=== PATIENT | female | born 1955 | race Caucasian/White ===

== ENCOUNTER 2018-06-11 14:28 | Emergency (ER) | payer MEDICAID, MEDICARE ==
[~2018-06-11] VITALS: Ht 162.6 cm; Wt 88.0 kg
[~2018-06-11 14:28] MED LIST: ALPR0.5T PO; ASPI-1155 PO; CALC0.258 PO; FURO40SO5 PO; HYDR-4100 PO; IBAN150T8 PO; LEVO100T9 PO; LOSA25TA3 PO; MONT10TA22 PO; OMEP20CA10 PO; POTA-88 PO
[2018-06-11 14:34] VITALS: BP_SYST 125
[2018-06-11] MEDS ORDERED: KETOROLAC TROMETHAMINE 60 MG/2 ML VIAL IM ONE (15:00)
[2018-06-11 16:18] VITALS: BP_SYST 125
== END 2018-06-11 16:18 | disposition home or self-care (01) ==
LOC: SED 14:28
DX: G89.29 Other chronic pain (principal); I10 Essential (primary) hypertension; E03.9 Hypothyroidism, unspecified; M79.7 Fibromyalgia; Z90.710 Acquired absence of both cervix and uterus; Z87.891 Personal history of nicotine dependence; Z87.442 Personal history of urinary calculi
CPT/HCPCS: 96372; 99283; J1885

== ENCOUNTER 2018-06-25 18:06 | Emergency (ER) | payer MEDICAID ==
[~2018-06-25] VITALS: Ht 162.6 cm; Wt 86.2 kg
[2018-06-25 18:10] VITALS: BP_SYST 151
--- NOTE | 2018-06-25 18:20 | NUR ---
Patient triaged and placed in waiting room. VSS and patient appears in no acute distress at this time. Accompanied by self, awaiting available bed, and MD notified of need for MSE.
--- NOTE | 2018-06-25 19:35 | NUR ---
Placed in room 03 . Placed on fuel technician, blood pressure machine and pulse oximeter. To gown for exam. Side rails up. Report given to RN.
--- NOTE | 2018-06-25 19:35 | NUR ---
Patient called for placement unable to be found for placement.
[2018-06-25] MEDS ORDERED: ALBUTEROL SULFATE 0.083% 2.5 MG/3 ML VIAL.NEB IH ONE (21:00)
[2018-06-25] MEDS ORDERED: IPRATROPIUM BROM 0.5 MG/2.5 ML VIAL.NEB (ATROVENT) IH ONE (21:00)
[2018-06-25] MEDS ORDERED: methylPREDNISolone SOD SUCC/PF 62.5 MG/ML VIAL IVP ONE (21:00)
--- NOTE | 2018-06-25 21:00 | NUR ---
Patient back in waiting room. VSS. No bed available at this time. Will continue to monitor.
--- NOTE | 2018-06-25 21:15 | NUR ---
Patient not found in waiting room for chest x-ray.
--- NOTE | 2018-06-25 21:30 | NUR ---
Patient not in waiting room, not in x-ray, not in bathroom, not outside of ER/Hospital, unable to locate patient.
--- NOTE | 2018-06-25 22:30 | NUR ---
Patient not in waiting room, not in bathroom, not in radiology, not outside of ER/Hospital, unable to locate patient. Charge nurse aware.
--- NOTE | 2018-06-25 23:00 | NUR ---
Patient not in waiting room, not in bathroom, not in radiology, not outside of ER/Hospital, unable to locate patient. Charge nurse aware.
--- NOTE | 2018-06-25 23:05 | NUR ---
Patient left without being seen. Patient was not seen by ER MD.
== END 2018-06-25 23:05 | disposition left against medical advice (07) ==
LOC: SED 18:06
DX: R05 Cough (principal); R06.02 Shortness of breath; R50.9 Fever, unspecified; Z53.21 Procedure and treatment not carried out due to patient leaving prior to being seen by health care provider
CPT/HCPCS: 99281; J7613

== ENCOUNTER 2018-07-09 09:55 | Emergency (ER) | payer MEDICAID ==
[~2018-07-09] VITALS: Ht 162.6 cm; Wt 87.1 kg
[2018-07-09 10:15] VITALS: BP_SYST 99
[2018-07-09] MEDS: NACL 0.9% 1,000 ML IV ONE (11:15)
[2018-07-09 11:27] LABS: BLOOD, URINE NEGATIVE (NEGATIVE); CLARITY/URINE SL HAZY (CLEAR); COLOR,URINE YELLOW (YELLOW); GLUCOSE,URINE NEGATIVE (NEGATIVE); KETONES,URINE 1+ (NEGATIVE); LEUKOCYTE ESTERASE ,URINE 1+ (NEGATIVE); NITRITE, URINE NEGATIVE (NEGATIVE); PROTEIN URINE TRACE (NEGATIVE); UROBILINOGEN,URINE 0.2 (0.2-1.0)
[2018-07-09 11:35] LABS: BASOPHILS # (AUTO) 0.1 K/uL (0.0-0.2); BASOPHILS % (AUTO) 0.6 % (0.0-2.0); EOSINOPHILS # (AUTO) 0.1 K/uL (0.0-0.4); HEMATOCRIT 39.6 % (36-48); HEMOGLOBIN 12.9 g/dL (12.0-16.0); LYMPHOCYTES # (AUTO) 4.7 K/uL (1.0-5.5); MEAN CORPUSCULAR HEMOGLOBIN 28 pg (27-31); MEAN CORPUSCULAR HGB CONC 33 % (32-36); MEAN CORPUSCULAR VOLUME 87 fL (79.0-98.0); MONOCYTES # (AUTO) 0.6 K/uL (0.0-1.0); MONOCYTES % (AUTO) 6.7 % (1.7-9.3); NEUTROPHILS # (AUTO) 3.4 K/uL (1.8-7.7); NEUTROPHILS % (AUTO) 38.7 % (40.0-70.0); PLATELET COUNT (AUTO) 249 K/uL (130-430); RED BLOOD CELL COUNT(AUTO) 4.56 MIL/uL (4.2-6.2); RED CELL DISTRIBUTION WIDTH 18.5 % (9.0-15.0); WHITE BLOOD COUNT (AUTO) 8.9 K/uL (4.8-10.8)
[2018-07-09 11:42] LABS: BACTERIA,URINE MODERATE /HPF (None Seen); BILIRUBIN,URINE 1+ (NEGATIVE); MUCUS,URINE 1+ /LPF (None Seen); RBC,URINE 0-3 /HPF (0-3)
[2018-07-09 11:44] LABS: CALCIUM 8.4 mg/dL (8.4-11.0); CREATININE 1.02 mg/dL (0.55-1.30); POTASSIUM 3.5 mmol/L (3.5-5.1)
[2018-07-09 11:49] LABS: TOTAL BILIRUBIN 0.5 mg/dL (0.0-1.0)
[2018-07-09 11:50] LABS: INR 1.1 (0.8-1.2)
[2018-07-09] MEDS: ONDANSETRON HCL 4 MG/2 ML VIAL IVP ONE (12:16)
[2018-07-09] MEDS ORDERED: AMIT100T2 PO (14:11)
[2018-07-09] MEDS ORDERED: TIZA4TAB11 PO (14:11)
[2018-07-09] MEDS ORDERED: MULT-1159 PO (14:11)
[2018-07-09] MEDS ORDERED: METH2.5T PO (14:11)
[2018-07-09] MEDS ORDERED: METO-290 PO (14:11)
[2018-07-09] MEDS ORDERED: MILN50TA PO (14:11)
[2018-07-09] MEDS ORDERED: FOLI-43 PO (14:11)
[2018-07-09] MEDS ORDERED: XALEYE OP (14:11)
[2018-07-09] MEDS: HYDROcodone/ACETAMIN 10-325 MG TAB PO ONE (15:04)
[2018-07-09 16:38] VITALS: BP_SYST 110
== END 2018-07-09 16:38 | disposition home or self-care (01) ==
LOC: SED 09:55
DX: I88.0 Nonspecific mesenteric lymphadenitis (principal); M79.7 Fibromyalgia; E03.9 Hypothyroidism, unspecified; I10 Essential (primary) hypertension; Z88.5 Allergy status to narcotic agent; Z88.6 Allergy status to analgesic agent; Z79.82 Long term (current) use of aspirin; Z79.899 Other long term (current) drug therapy
CPT/HCPCS: 36415; 71045; 74176; 80053; 81000; 83605; 84484; 85025; 85610; 85730; 87040; 87086; 93005; 96361; 96374; 99284; J2405; J7030

== ENCOUNTER 2019-05-04 19:42 | Emergency (ER) | payer MEDICAID ==
[~2019-05-04] VITALS: Ht 162.6 cm; Wt 78.5 kg
[~2019-05-04 19:42] MED LIST changes: +AMIT100T2 PO; +FOLI-43 PO; +METH2.5T PO; +METO-290 PO; +MILN50TA PO; +MULT-1159 PO; -OMEP20CA10 PO; +OMEP20CA11 PO; +TIZA4TAB11 PO; +XALEYE OP
[2019-05-04 19:50] VITALS: BP_SYST 145
[2019-05-04] MEDS ORDERED: LIDOCAINE 1% 10 MG/ML, 20 ML MDV INJ ONE (21:00)
[2019-05-04] MEDS ORDERED: KETOROLAC TROMETHAMINE 60 MG/2 ML VIAL IM ONE (21:00)
[2019-05-04 21:26] VITALS: BP_SYST 145
== END 2019-05-04 21:26 | disposition home or self-care (01) ==
LOC: SED 19:42
DX: S52.592A Other fractures of lower end of left radius, initial encounter for closed fracture (principal); J45.909 Unspecified asthma, uncomplicated; I10 Essential (primary) hypertension; E03.9 Hypothyroidism, unspecified; M79.7 Fibromyalgia; Z90.49 Acquired absence of other specified parts of digestive tract; Z90.710 Acquired absence of both cervix and uterus; Z88.5 Allergy status to narcotic agent; Z88.6 Allergy status to analgesic agent; Z79.899 Other long term (current) drug therapy; Z79.82 Long term (current) use of aspirin; W01.0XXA Fall on same level from slipping, tripping and stumbling without subsequent striking against object, initial encounter; Y93.89 Activity, other specified; Y92.89 Other specified places as the place of occurrence of the external cause; Y99.8 Other external cause status
CPT/HCPCS: 25605; 73110; 96372; 99283; J1885; 99284

== ENCOUNTER 2020-11-01 11:40 | Emergency (ER) | payer MEDICAID, MEDICARE ==
[~2020-11-01] VITALS: Ht 160 cm; Wt 83.0 kg
[~2020-11-01 11:40] MED LIST changes: +HYDR-3927 PO; -HYDR-4100 PO; +IBAN150T21 PO; -IBAN150T8 PO; -OMEP20CA11 PO; +OMEP20CA15 PO; -TIZA4TAB11 PO; +ZAN4 PO
[2020-11-01 12:03] VITALS: BP_SYST 118
[2020-11-01 12:38] LABS: BILIRUBIN,URINE NEGATIVE (NEGATIVE); BLOOD, URINE NEGATIVE (NEGATIVE); CLARITY/URINE CLEAR (CLEAR); COLOR,URINE YELLOW (YELLOW); GLUCOSE,URINE NEGATIVE (NEGATIVE); KETONES,URINE NEGATIVE (NEGATIVE); LEUKOCYTE ESTERASE ,URINE NEGATIVE (NEGATIVE); NITRITE, URINE NEGATIVE (NEGATIVE); PH,URINE 5.5 (5.0-8.0); PROTEIN URINE NEGATIVE (NEGATIVE); UROBILINOGEN,URINE 0.2 (0.2-1.0)
[2020-11-01] MEDS: NACL 0.9% 1,000 ML IV ONE ×2 (12:44→13:04)
[2020-11-01 12:45] LABS: BASOPHILS % (AUTO) 0.7 % (0.0-2.0); EOSINOPHILS # (AUTO) 0.1 K/uL (0.0-0.4); EOSINOPHILS % (AUTO) 2.1 % (0.0-4.0); HEMATOCRIT 35.3 % (36-48); HEMOGLOBIN 11.6 g/dL (12.0-16.0); LYMPHOCYTES # (AUTO) 1.9 K/uL (1.0-5.5); LYMPHOCYTES % (AUTO) 36.1 % (20.5-51.5); MEAN CORPUSCULAR HEMOGLOBIN 31 pg (27-31); MEAN CORPUSCULAR HGB CONC 33 % (32-36); MEAN CORPUSCULAR VOLUME 94 fL (79.0-98.0); MONOCYTES # (AUTO) 0.3 K/uL (0.0-1.0); NEUTROPHILS # (AUTO) 2.9 K/uL (1.8-7.7); NEUTROPHILS % (AUTO) 55.1 % (40.0-70.0); PLATELET COUNT (AUTO) 238 K/uL (130-430); RED BLOOD CELL COUNT(AUTO) 3.74 MIL/uL (4.2-6.2); WHITE BLOOD COUNT (AUTO) 5.3 K/uL (4.8-10.8)
[2020-11-01 13:01] LABS: CALCIUM 9.1 mg/dL (8.4-11.0); CREATININE 1.08 mg/dL (0.55-1.30); POTASSIUM 4.5 mmol/L (3.5-5.1)
[2020-11-01 13:06] LABS: ALBUMIN 4.1 g/dL (3.4-4.8); TOTAL BILIRUBIN 0.4 mg/dL (0.0-1.0)
[2020-11-01] MEDS: ONDANSETRON HCL 4 MG/2 ML VIAL IVP ONE (13:06)
[2020-11-01] MEDS: MORPHINE 4 MG/ML INJ. SYRINGE IVP ONE (13:07)
[2020-11-01] MEDS: KETOROLAC TROMETHAMINE 15 MG VIAL IVP ONE (16:27)
[2020-11-01] MEDS ORDERED: HYDR-3919 PO (17:27)
[2020-11-01] MEDS ORDERED: IBUP-1969 PO (17:27)
[2020-11-01 18:13] VITALS: BP_SYST 134
== END 2020-11-01 18:13 | disposition home or self-care (01) ==
LOC: SED 11:40
DX: I70.90 Unspecified atherosclerosis (principal); J45.909 Unspecified asthma, uncomplicated; I10 Essential (primary) hypertension; E03.9 Hypothyroidism, unspecified; Z87.442 Personal history of urinary calculi; Z79.899 Other long term (current) drug therapy; Z79.82 Long term (current) use of aspirin; Z88.6 Allergy status to analgesic agent
CPT/HCPCS: 36415; 74176; 76376; 80053; 81003; 85025; 96361; 96374; 96375; 99284; J1885; J2270; J2405; J7030